=== PATIENT | male | born 2000 | race Caucasian/White ===

== ENCOUNTER 2019-09-24 03:11 | Emergency (ER) | payer OTHER ==
[~2019-09-24] VITALS: Ht 175.3 cm; Wt 104.5 kg
[2019-09-24 04:33] VITALS: BP 147/78
== END 2019-09-24 04:33 | disposition home or self-care (01) ==
LOC: ED 03:11
DX: S62.617A Displaced fracture of proximal phalanx of left little finger, initial encounter for closed fracture (principal); F17.210 Nicotine dependence, cigarettes, uncomplicated; W20.8XXA Other cause of strike by thrown, projected or falling object, initial encounter; Y99.0 Civilian activity done for income or pay